=== PATIENT | female | born 1985 | race Caucasian/White ===

== ENCOUNTER 2020-03-30 10:32 | Observation (INO) | payer BC ==
[~2020-03-30] VITALS: Ht 165.1 cm; Wt 51.0 kg
[~2020-03-30 10:32] MED LIST: HYDACE10B PO; LEVFLO500 PO; LORA1 PO; NAPR500 PO; RXSULTRIDS
[2020-03-30 11:21] LABS: BASOPHILS ABSOLUTE AUTO 0.02 K/mm3 (0.00-0.23); BASOPHILS PERCENT AUTO 0 % (0-2); EOSINOPHILS ABSOLUTE AUTO 0.01 K/mm3 (0.00-0.68); EOSINOPHILS PERCENT AUTO 0 % (0-6); Hematocrit 48.9 % (33.0-51.0); Hemoglobin 16.3 g/dL (11.5-16.0); IMMATURE GRAN ABSOLUTE AUTO 0.05 K/mm3 (0.00-0.10); IMMATURE GRAN PERCENT AUTO 0 % (0-1); LYMPHOCYTES ABSOLUTE AUTO 0.49 K/mm3 (0.84-5.20); LYMPHOCYTES PERCENT AUTO 3 % (21-46); MONOCYTES ABSOLUTE AUTO 0.36 K/mm3 (0.16-1.47); MONOCYTES PERCENT AUTO 2 % (4-13); Mean Corpuscular HGB 30.2 pg (26.0-34.0); Mean Corpuscular HGB Conc 33.3 g/dL (31.5-36.5); Mean Corpuscular Volume 91 fL (80-100); Mean Platelet Volume 10.2 fL (9.1-12.4); NEUTROPHILS ABSOLUTE AUTO 15.08 K/mm3 (1.96-9.15); NEUTROPHILS PERCENT AUTO 94 % (41-73); Platelet Count 226 K/mm3 (150-400); Red Blood Cell Count 5.39 M/mm3 (3.80-5.20); White Blood Cell Count 16.01 K/mm3 (4.00-11.30)
[2020-03-30 11:40] LABS: Alanine Aminotransfer (ALT/SGP 18 U/L (12-78); Albumin, Blood 4.9 g/dL (3.4-5.0); Albumin/Globulin Ratio 1.4 (0.8-1.8); Alk Phos 51 U/L (50-136); Anion Gap 8 mmol/L (6-16); Aspartate Aminotrans (AST/SGOT 30 U/L (12-37); Bilirubin, Total 0.6 mg/dL (0.1-1.0); Blood Urea Nitrogen 11 mg/dL (8-24); Bun/Creatinine Ratio 13.3 (12.0-20.0); CO2, Blood 23 mmol/L (21-32); Calcium, Blood 8.7 mg/dL (8.5-10.1); Chloride, Blood 108 mmol/L (98-108); Creatinine, Blood 0.83 mg/dL (0.40-1.00); Globulin, Blood 3.6 g/dL (2.2-4.0); Glomerular Filtration Rate >60 (60-); Glucose, Blood 113 mg/dL (70-99); Potassium, Blood 4.3 mmol/L (3.5-5.5); Sodium, Blood 139 mmol/L (136-145); Total Protein, Blood 8.5 g/dL (6.4-8.2)
[2020-03-30 11:49] LABS: Source, Urine Clean Catch
[2020-03-30 11:50] LABS: Ethanol (Alcohol), Blood, Med <3 mg/dL; Salicylate <1.7 mg/dL (2.8-20.0); Thyroxine (T4) 10.3 ug/dL (4.8-13.9)
[2020-03-30 11:51] LABS: Acetaminophen, Random <2.0 ug/mL (10.0-30.0)
[2020-03-30 12:00] LABS: Bilirubin, Urine Neg (Neg); Blood, Urine 5+ (Neg); Glucose Qualitative, Urine Neg (Neg); Ketones, Urine Neg (Neg); Leukocyte Esterase, Urine 1+ (Neg); Nitrite, Urine Neg (Neg); Protein, Urine 2+ (Neg); Specific Gravity, Urine 1.015 (1.003-1.022); Urobilinogen, Urine NORM (Normal)
[2020-03-30 12:08] LABS: Appearance, Urine Clear (Clear); Color, Urine Yellow (P-Yellow)
[2020-03-30 12:10] LABS: Bacteria Mod /hpf; Hyaline Casts 0-2 /lpf (0-2); Squamous Epithelial Cells Few /hpf (Few); Transitional Epithelial Cells Few /hpf (0-Rare)
[2020-03-30 12:11] LABS: U Amphetamine Screen Not Detected; U Barbituate Screen Not Detected; U Benzodiazapine Screen Not Detected; U Buprenorphine Screen Not Detected; U Cannabinoids Screen Not Detected; U Cocaine Screen Not Detected; U Methadone Screen Not Detected; U Methamphetamine Screen Not Detected; U Opiates Screen Not Detected; U Oxycodone Screen Not Detected; U Phencyclidine Screen Not Detected; U Propoxyphene Screen Not Detected
[2020-03-30 12:44] LABS: Influenza A, PCR Negative (NEGATIVE); Influenza B, PCR Negative (NEGATIVE); Resp Syncytial Virus, PCR Negative (NEGATIVE); SARS-Cov-2 (COVID-19) PCR, MMC Negative (NEGATIVE)
--- NOTE | 2020-03-30 15:44 | NUR ---
ADMIT ASSESSMENT- PT ADMITTED TO ICU FROM ER ON [facility]. ABLE TO AMBULATE IN ROOM TO TOILET AND THEN SINK AND BED. SLIGHTLY UNSTEADY ON FEET, STANDBY ASSIST. REVIEWED PRECAUTIONS WITH PT, STATES UNDERSTANDING. ON CAMERA FOR MONITORING. SINUS TACH, BP STABLE. IV BANANA BAG INFUSING AT 200 CC/HR, PIV X 2 INTACT. NO N/V. PUPILS EQUAL, LARGE, REACTIVE. STATES DID NOT TAKE ANY MEDICATIONS AT HOME AND DOESN'T UNDERSTAND WHY SHE IS IN HOSPITAL BUT IS AGREEABLE TO STAY. ON 2 MD HOLD. BED ALARM ON. ABLE TO ANSWER QUESTIONS FOR HISTORY, STATES "HEAD FEELS CONFUSED".
--- NOTE | 2020-03-30 16:56 | NUR ---
PT CALM, COOPERATIVE. UP TO BATHROOM X 2, VOIDING SMALL AMOUNTS. BLADDER SCAN GREATHER THAN 900 CC IN BLADDER. STRAIGHT CATH DONE-TOLERATED WELL. 1000 CC CLEAR YELLOW URINE DRAINED. SITTING UP IN BED EATING NOW. NS AT 100 CC/HR. NSR
--- NOTE | 2020-03-30 18:20 | NUR ---
PT'S SIGNIFICANT OTHER YANCI HERE-VISITED AT BEDSIDE. PT ADAMENTLY DENIES TAKING ANY PILLS, STATES HAD WINE AND WENT TO SLEEP. EXPLAINED PLAN OF CARE, NEED TO MONITOR FOR SAFETY TONIGHT. STATES UNDERSTANDING. ATE ONLY BITES FOR DINNER. TRYING TO SLEEP NOW. CAMERA MONITORING
--- NOTE | 2020-03-30 19:00 | NUR ---
RESTING WITHOUT COMPLAINTS. VSS. CONTINUE TO MONITOR
--- NOTE | 2020-03-30 20:18 | NUR ---
ASSUMED CARE ASSUMED PT CARE. PT AWAKE ALERT AND ORIENTEDX4. DENIES PAIN OR DISCOMFORT. DENIES HALLUCINATIONS AT THIS TIME. PT STATES IF SHE FEELS HER SPEECH IS NOT NORMAL. SPEECH SOUNDS NORMAL, POSSIBLY A LITTLE SLOW TO RESPOND. PUPILS 8MM AND RESPONSIVE TO LIGHT LUNG SOUNDS CLEAR, PT ON ROOM AIR. SPO2> 96%. HEART TONES NORMAL IN ST. BOWEL NORMAL IN ALL QUADRANTS. NO SWELLING TO EXTREMITIES, STRONG PULSES. PT DENIES SI AND DENIES SHE TOOK ANY MEDICATIONS IN AN ATTEMPT TO HARM HERSELF.
[2020-03-31 03:21] LABS: BASOPHILS ABSOLUTE AUTO 0.02 K/mm3 (0.00-0.23); BASOPHILS PERCENT AUTO 0 % (0-2); EOSINOPHILS ABSOLUTE AUTO 0.02 K/mm3 (0.00-0.68); EOSINOPHILS PERCENT AUTO 0 % (0-6); Hematocrit 42.2 % (33.0-51.0); Hemoglobin 13.7 g/dL (11.5-16.0); IMMATURE GRAN ABSOLUTE AUTO 0.01 K/mm3 (0.00-0.10); IMMATURE GRAN PERCENT AUTO 0 % (0-1); LYMPHOCYTES PERCENT AUTO 36 % (21-46); MONOCYTES PERCENT AUTO 7 % (4-13); Mean Corpuscular HGB 29.7 pg (26.0-34.0); Mean Corpuscular HGB Conc 32.5 g/dL (31.5-36.5); Mean Corpuscular Volume 91 fL (80-100); Mean Platelet Volume 10.1 fL (9.1-12.4); NEUTROPHILS ABSOLUTE AUTO 3.43 K/mm3 (1.96-9.15); NEUTROPHILS PERCENT AUTO 56 % (41-73); Platelet Count 168 K/mm3 (150-400); RDW Coefficient Variation 13.2 % (11.7-14.2); RDW Standard Deviation 44.4 fL (35.1-46.3); Red Blood Cell Count 4.62 M/mm3 (3.80-5.20); White Blood Cell Count 6.08 K/mm3 (4.00-11.30)
[2020-03-31 03:41] LABS: Alanine Aminotransfer (ALT/SGP 13 U/L (12-78); Albumin, Blood 3.6 g/dL (3.4-5.0); Albumin/Globulin Ratio 1.4 (0.8-1.8); Alk Phos 39 U/L (50-136); Anion Gap 3 mmol/L (6-16); Aspartate Aminotrans (AST/SGOT 25 U/L (12-37); Blood Urea Nitrogen 10 mg/dL (8-24); Bun/Creatinine Ratio 13.1 (12.0-20.0); CO2, Blood 26 mmol/L (21-32); Calcium, Blood 8.2 mg/dL (8.5-10.1); Chloride, Blood 113 mmol/L (98-108); Creatinine, Blood 0.76 mg/dL (0.40-1.00); Globulin, Blood 2.6 g/dL (2.2-4.0); Glomerular Filtration Rate >60 (60-); Glucose, Blood 88 mg/dL (70-99); Potassium, Blood 4.1 mmol/L (3.5-5.5); Sodium, Blood 142 mmol/L (136-145)
--- NOTE | 2020-03-31 04:12 | NUR ---
PT HAD NOT URINATED FOR THIS SHIFT. BLADDER SCANNED, >555 CC. ENCAORAGED PT TO URINATE. PT WAS ABLE TO URINATE 500CC.
[2020-03-31 05:31] LABS: Total Protein, Blood 6.2 g/dL (6.4-8.2)
--- NOTE | 2020-03-31 06:25 | NUR ---
SHIFT SUMMARY PT SLEPT WELL THROUGHOUT THE NIGHT. A&OX4. ABLE TO AMBULATE TO BR AND STEADY ON HER FEET. PT ENCOURAGED TO URINATE A FEW TIMES THIS NIGHT AND HAS BEEN ABLE TO URINATE WITHOUT DIFFICULTY WHEN PROMPTED. CAMERA REMAINS ON FOR PT. SAFETY. NO DISCOMFORT OR DISTRESS.
--- NOTE | 2020-03-31 08:00 | NUR ---
ASSUMED CARE OF PT PT RESTING IN BED ALERT AND ORIENTED, FLAT AFFECT. CURRENTLY DENIES ANY THOUGHTS OF SELF HARM, PT NOT INTERACTIVE OR WILLING TO OPEN UP DIALECT WITH STAFF. PT REMAINS ON CAMERA MONITOR FOR SAFETY. PT ABLE TO VOID THIS MORNING WITH NO DIFFICULTIES. SINUS RHYTHM ON THE MONITOR, BP SOFT WITH SYSTOLICS IN THE HIGH 90'S, PT NORMAL BP LOW 100'S. OTHER VITALS REMAIN STABLE.
--- NOTE | 2020-03-31 10:14 | NUR ---
PT WAS SITTING IN BED WITH KNEES UP AND ARMS WRAPPED AROUND LEGS, WITH A FLAT AFFECT, STARRING AT THE WALL. PT REMAINS MINMALLY INTERACTIVE WITH STAFF AND USES SIMPLE ANSWERS TO QUESTIONS. PT DIDN'T EAT BREAKFAST AND DECLINED OTHER FOOD OPTIONS. OPENED CURTAINS TO PROVIDE NATURAL LIGHT INTO THE ROOM. AFTER DR ROUNDS, PT WAS STATUS CHANGED TO MED W/ TELE. CALL LIGHT WITHIN REACH OF PT.
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
--- NOTE | 2020-03-31 14:45 | NUR ---
TRANSFER OF CARE REPORT GIVEN TO ROLA LOPEZ ON MEDICAL FLOOR. PT TRANSFERRED TO ROOM 347. BELONGINGS GATHERED AND SENT UP WITH PT AND RECYCLABLE MATERIALS DISTRIBUTOR. CAMERA STAFF SUBMARINE WARFARE OFFICER NOTIFIED OF ROOM CHANGE. PT CONTINUES HAVE NO APPETITE AND DIDN'T EAT ANYTHING AT LUNCH. PT RESTING IN BED, FLAT AFFECT, CALM, FOLLOWS COMMANDS, STARES AT WALL OR OUT THE WINDOW FOR LONG PERIODS OF TIME.
--- NOTE | 2020-04-01 04:53 | NUR ---
SHIFT SUMMARY- PT. A&O, PLEASANT, AND COOPERATIVE WITH CARE. ON MODERATE SI. INDEPENDENT IN ROOM, TOOK SHOWER LAST NIGHT W/CLEARANCE COORDINATOR SUPERVISION. HAD NO COMPLAINTS T/O THE NIGHT. RESTING QUIETLY THIS SHIFT, NO APPARENT DISTRESS NOTED. VSS. CALL LIGHT WITHIN REACH, SIDE RAILS UPX2, AND CAMERA ON. WILL CONT TO MONITOR.
--- NOTE | 2020-04-01 16:41 | NUR ---
SHIFT SUMMARY- PT IS A/O, PLESANT AND COOPERATIVE. SHE IS EATING AND DRINKING WELL. SHE DENIES ANY SI THIS SHIFT. VISITOR THIS AFTERNOON. SHE REPORTS FEELING A LITTLE SHAKY TODAY BUT THAT IT HAS GREATLY IMPROVED. SHE IS AMBULATING TO THE RESTROOM
--- NOTE | 2020-04-02 05:13 | NUR ---
SHIFT SUMMARY- NO ACUTE CHANGES TO CONDITION. PT. PLEASANT AND COOPERATIVE WITH CARE. DENIED SI, STATED ANTICIPATING D/C TO HOME SOON. NO COMPLAINTS T/O THE SHIFT. CALL LIGHT WITHIN REACH AND SIDE RAILS UPX2. WILL CONT TO MONITOR.
--- NOTE | 2020-04-02 17:51 | NUR ---
SHIFT [place]- PT IS A/O, PLESANT AND COOPERATIVE. SHE IS EATING AND DRINKING WELL. SHE IS AMBULATING TO THE RESTROOM. SPOKE WITH PT ABOUT DECISIONS WITH HER LIVING SITUATION, AND HOW IT MAY BE BENIFICIAL TO SEE IF HER EMPLOYER OFFERS ANY TYPE OF THERAPY THAT CAN HELP HER WITH THOSE DECISIONS. HER VISITED THIS AFTERNOON. HER BED IS IN THE LOW POSITION AND CALL LIGHT IS WITHIN REACH.
--- NOTE | 2020-04-03 04:30 | NUR ---
SHIFT SUMMARY- NO ACUTE EVENTS OVERNIGHT. PT. APPEARED TO BE HAPPIER AND WITH BETTER MOOD LAST NIGHT. ANTICIPATING D/C TO HOME TODAY. NO COMPLAINTS DURING THE NIGHT. RESTING QUIETLY IN BED T/O THE SHIFT. NO APPARENT DISTRESS NOTED. CALL LIGHT WITHIN REACH AND SIDE RAILS UPX2. WILL CONT TO MONITOR.
[2020-04-03] MEDS ORDERED: TRAZ50 PO (13:37)
--- NOTE | 2020-04-03 14:18 | NUR ---
a+o, both dr's said she would be safe to go home with family, reviewed discharge instructions, medications, hospital stay and changes needed to make her discharge successful, and removed her tele, escorted to family vehicle and assisted pt into seat, all appeared wel, returned tele
== END 2020-04-03 13:55 | disposition home or self-care (01) ==
LOC: ER 10:32 → ICUW 10:33 → MEDS 10:33 → ICUW 10:33 → ER 14:35 → ICUW 14:35 → MEDS 03-31 14:33
PROVIDERS: Emergency Medicine; Nurse Practitioner Acute Care; ADMIT Hospitalist
DX: T45.0X2A Poisoning by antiallergic and antiemetic drugs, intentional self-harm, initial encounter (principal); R53.1 Weakness; F32.89 Other specified depressive episodes; F10.10 Alcohol abuse, uncomplicated; G92 Toxic encephalopathy; Z88.5 Allergy status to narcotic agent; Z23 Encounter for immunization; Z79.1 Long term (current) use of non-steroidal anti-inflammatories (NSAID); Z79.891 Long term (current) use of opiate analgesic; Z20.828 Contact with and (suspected) exposure to other viral communicable diseases
CPT/HCPCS: 0241U; 36415; 80053; 81001; 81025; 82140; 82607; 82746; 82947; 83735; 84436; 84443; 85025; 87086; 93005; 93010; 96361; 96365; 99285-25; G0480; J1650; J3411; J3475; J7030; J7042